=== PATIENT | male | born 1995 | race Caucasian/White ===

== ENCOUNTER 2020-06-01 12:23 | Emergency (ER) | payer BC, OTHER ==
[~2020-06-01] VITALS: Ht 170.2 cm; Wt 63.6 kg
[2020-06-01 13:13] VITALS: BP 163/105
[2020-06-01 13:49] LABS: BASOPHILS # (AUTO) 0.1 X10'3 (0-0.2); BASOPHILS % (AUTO) 0.8 % (0-1); EOSINOPHILS # (AUTO) 0.1 X10'3 (0-0.9); EOSINOPHILS % (AUTO) 1.8 % (0-6); HEMATOCRIT 47.8 % (42.0-52.0); HEMOGLOBIN 16.1 g/dl (14.0-17.9); LYMPHOCYTES # (AUTO) 1.9 X10'3 (1.1-4.8); MEAN CORPUSCULAR HEMOGLOBIN 29.4 PG (27.0-31.0); MEAN CORPUSCULAR HGB CONC 33.7 g/dL (33.0-36.5); MEAN CORPUSCULAR VOLUME 87.4 FL (78-98); MONOCYTES # (AUTO) 0.6 X10'3 (0-0.9); MONOCYTES % (AUTO) 9.3 % (2-12); NEUTROPHILS # (AUTO) 4.2 X10'3 (1.8-7.7); NEUTROPHILS % (AUTO) 61.1 % (42-75); PLATELET COUNT 284 X10'3 (140-440); RED BLOOD COUNT 5.47 X10'6 (4.70-6.10); RED CELL DISTRIBUTION WIDTH 13.7 % (11.5-14.5); WHITE BLOOD COUNT 6.9 X10'3 (4.5-11.0)
[2020-06-01 14:11] LABS: ALANINE AMINOTRANSFERASE 37 U/L (12-78); ALBUMIN 4.6 G/DL (3.4-5.0); ALBUMIN/GLOBULIN RATIO 1.2 (1.1-1.5); ALKALINE PHOSPHATASE 111 IU/L (46-116); ANION GAP 9 (8-16); ASPARTATE AMINO TRANSFERASE 21 U/L (10-37); BILIRUBIN,TOTAL 1.4 MG/DL (0.1-1.0); BLOOD UREA NITROGEN 15 MG/DL (7-18); BUN/CREATININE RATIO 16.5 (5.4-32.0); CALCIUM 9.6 MG/DL (8.5-10.1); CHLORIDE 105 MMOL/L (99-107); CREATININE 0.91 MG/DL (0.60-1.10); GLUCOSE 97 MG/DL (70-104); SODIUM 145 MMOL/L (135-145); TOTAL CARBON DIOXIDE 31.1 MMOL/L (24-32); TOTAL PROTEIN 8.5 G/DL (6.4-8.2); eGFR > 90 ML/MIN
[2020-06-01 14:16] LABS: ETHANOL < 0.010 GM/DL (0.0-0.010)
--- NOTE | 2020-06-01 15:50 | NUR ---
PT BEING VERBALLY AGGRESSIVE IN ROOM SCREAMING OUT. EDUCATED PT ON POC AND NEEDING A UA TO BE EVALUATED. PT STATED "I WILL PEE IN THE SINK BEFORE I GIVE YOU A SAMPLE", SECURITY CALLED. PT DEMANDED A CIGARETTE AND SUNLIGHT. EDUCATED ON BEING ON 5150 AND CAN GET NICOTINE PATCH. PT REFUSED AND STARTED TO THREATEN SECURITY AND MYSELF. SPOKE WITH PROVIDER AND GOT ORDER FOR B52. ONCE IN ROOM WITH MEDICATION PT AGREES TO GIVE UA IF WE GET HIM A NICOTINE PATCH. PT GAVE UA SAMPLE, NICOTINE PATCH APPLIED TO LEFT SHOULDER. EDUCATED THAT HE NEEDS TO CHANGE HIS BEHAVIOR OR WILL GET THE B52. PT AGREES TO PLAN.
[2020-06-01] MEDS ORDERED: LORazepam 2 mg/ml vial IM ONE (15:55)
[2020-06-01] MEDS ORDERED: diphenhydrAMINE 50 mg/ml inj IM ONE (15:55)
[2020-06-01] MEDS ORDERED: haloperidol lactate 5mg/ml inj IM ONE (15:55)
[2020-06-01] MEDS ORDERED: nicotine 21mg patch - 24 hr TD ONE (16:05)
[2020-06-01 16:23] LABS: CLARITY,URINE CLEAR (Clear); COLOR,URINE YELLOW (Yellow); GLUCOSE, URINE NEGATIVE (Neg); KETONES,URINE NEGATIVE (Neg); LEUKOCYTE ESTERASE ,URINE NEGATIVE (Neg); NITRITES, URINE NEGATIVE (Neg); OCCULT BLOOD,URINE NEGATIVE (Neg); PROTEIN,URINE NEGATIVE (Neg)
[2020-06-01 16:26] LABS: UA COLLECTION TYPE CLN CATCH MIDSTREAM
[2020-06-01 16:39] LABS: URINE AMPHETAMINE SCREEN POSITIVE (Neg); URINE BARBITUATE SCREEN NEGATIVE (Neg); URINE BENZODIAZEPINES SCREEN NEGATIVE (Neg); URINE CANNABINOID SCREEN POSITIVE (Neg); URINE COCAINE SCREEN NEGATIVE (Neg); URINE METHADONE SCREEN NEGATIVE (Neg); URINE OPIATE SCREEN NEGATIVE (Neg); URINE PHENCYCLIDINE SCREEN NEGATIVE (Neg)
--- NOTE | 2020-06-01 19:32 | NUR ---
[facility] called for update on patient condition and asked if they could sent Andi ADAM over to evaluate patient for transfer. Patient's status discussed, Andi is on his way.
--- NOTE | 2020-06-01 20:16 | NUR ---
Andi ADAM from [facility] in to evaluate patient.
== END 2020-06-01 21:25 | disposition home or self-care (01) ==
LOC: ER 12:23
DX: R45.851 Suicidal ideations (principal); F12.90 Cannabis use, unspecified, uncomplicated; R94.6 Abnormal results of thyroid function studies; Z72.89 Other problems related to lifestyle; Z88.1 Allergy status to other antibiotic agents
CPT/HCPCS: 36415; 80053; 80305; 80320; 81003; 84443; 85025; 99285